=== PATIENT | male | born 1990 | race Caucasian/White ===

== ENCOUNTER 2020-11-14 14:05 | Emergency (ER) | payer SELFPAY ==
[2020-11-14] MEDS ORDERED: Cephalexin 250 MG CAP ONE (14:27)
[2020-11-14] MEDS ORDERED: Boostrix 0.5 ML (Tdap) VIAL ONE (14:28)
== END 2020-11-14 15:00 | disposition home or self-care (01) ==
LOC: BURERS 14:05
DX: L01.00 Impetigo, unspecified (principal)
CPT/HCPCS: 90471; 90715

== ENCOUNTER 2024-11-21 18:04 | Emergency (ER) | payer OTHER, SELFPAY ==
[2024-11-21] MEDS ORDERED: Ketorolac Tromethamine 30 MG (1 mL) VIAL ONE (18:31)
[2024-11-21] MEDS ORDERED: Morphine 4 MG/ML VIAL ONE ×2 (18:31→21:44)
[2024-11-21] MEDS ORDERED: Sodium Chloride 0.9% 100 ML ONE (18:32)
[2024-11-21] MEDS ORDERED: Vancomycin 1 GM VIAL ONE (18:32)
[2024-11-21] MEDS ORDERED: cefTRIAXone (ROCEPHIN) 2 GM VIAL ONE (18:32)
[2024-11-21 18:40] LABS: #Basophils 0.1 thou/uL (0.0-0.2); #Eosinophils 0.1 thou/uL (0.0-0.7); #Lymphocytes 3.2 thou/uL (1.20-3.40); #Neutrophils 8.5 thou/uL (1.40-6.50); %Basophils 0.6 % (0.0-1.0); %Eosinophils 1.1 % (0.0-10.0); %Lymphocytes 24.5 % (21.0-51.0); %Monocytes 7.8 % (0.0-10.0); Hematocrit 44.7 % (42.0-52.0); Hemoglobin 15.5 g/dL (14.0-18.0); Mean Corpuscular HGB CONC 34.7 g/dL (32.0-36.0); Mean Corpuscular Hemoglobin 27.8 pg (27.0-31.0); Mean Corpuscular Volume 80.2 fl (78.0-98.0); Mean Platelet Volume 7.1 fL (7.4-10.4); Platelet Count 346 10x3/uL (130-400); RBC Distribution Width 10.4 % (11.5-14.5); Red Blood Cell (RBC) Count 5.57 mill/uL (4.70-6.10); White Blood Cell (WBC) Count 12.9 10x3/uL (4.8-10.8)
[2024-11-21 18:57] LABS: ALT (SGPT) 27 U/L (8-55); AST (SGOT) 16 U/L (5-34); Albumin 4.3 g/dL (3.5-5.0); Alkaline Phosphatase 84 U/L (40-110); Anion Gap 16 mmol/L (10-20); BUN (Urea Nitrogen) 10 mg/dL (8.9-20.6); Bilirubin, Total 0.6 mg/dL (0.2-1.2); Calc. Creatinine Clearance 0 mL/min (70-130); Calcium 9.7 mg/dL (7.8-10.44); Carbon Dioxide 25 mmol/L (22-29); Chloride 100 mmol/L (98-107); Estimated GFR 116; Globulin 2.7 g/dL (2.4-3.5); Glucose 95 mg/dL (70-105); Potassium 3.7 mmol/L (3.5-5.1); Sodium 137 mmol/L (136-145)
== END 2024-11-21 22:20 | disposition short-term general hospital (02) ==
LOC: BURERS 18:04
DX: M65.141 Other infective (teno)synovitis, right hand (principal); F17.290 Nicotine dependence, other tobacco product, uncomplicated
CPT/HCPCS: 80053; 85025; 86140; 96365; 96367; 96375; 96376; J0696; J1885; J2270; J3370

== ENCOUNTER 2025-07-24 21:15 | Emergency (ER) | payer SELFPAY ==
[2025-07-24] MEDS ORDERED: Boostrix 0.5 ML (Tdap) VIAL (>/=7 yrs of age) ONE (22:57)
== END 2025-07-24 23:03 ==
LOC: BURERS 21:15 → EEVIPCON 21:15 → BURERS 23:03
DX: S30.0XXA Contusion of lower back and pelvis, initial encounter (principal); S09.90XA Unspecified injury of head, initial encounter; S50.812A Abrasion of left forearm, initial encounter; F17.290 Nicotine dependence, other tobacco product, uncomplicated; W01.198A Fall on same level from slipping, tripping and stumbling with subsequent striking against other object, initial encounter; Z23 Encounter for immunization
CPT/HCPCS: 70450; 72110; 90471; 90715